=== PATIENT | female | born 1955 | race African-American/Black ===

== ENCOUNTER 2016-11-02 12:53 | Emergency (ER) | payer OTHER ==
[2016-11-02] MEDS ORDERED: ALPRAZolam 0.25 MG TAB PO STA (13:14)
--- NOTE | 2016-11-02 13:18 | ED ---
Recheck HPI - General Chief Complaint: Recheck/Abnormal Lab/Rx Stated Complaint: Blood Pressure Time Seen by Provider: 11/02/16 13:10 Source: patient, RN notes reviewed Mode of arrival: ambulatory Limitations: no limitations - History of Present Illness Initial Comments: This is a 61-year-old female with a history of a four-way coronary artery bypass on September 08 of this past year who also has hypertension states her blood pressure normally is well under control but just prior to admission she was visiting her son was on the psychiatric [place] and had apparently discussion with him she wasn't feeling well and blood pressure taken to a systolic of 210 a diastolic of 106. She was asymptomatic otherwise other than being very anxious. He came in for evaluation. She denies any chest pain or shortness of breath loss of function to her upper or lower extremities. - Related Data Home Medications Medication Instructions Recorded Confirmed metFORMIN HCL [metFORMIN HCL ER] 500 mg PO BID 09/04/16 11/02/16 Previous Rx's Medication Instructions Recorded Aspirin 325 mg PO DAILY #30 tab 09/13/16 Atorvastatin [Lipitor] 40 mg PO DAILY #30 tab 09/13/16 Clopidogrel [Plavix] 75 mg PO DAILY #30 tab 09/13/16 Ferrous Sulfate [Iron (65 MG 325 mg PO W/LUNCH #30 tab 09/13/16 Elemental)] Furosemide [Lasix] 20 mg PO DAILY #30 tab 09/13/16 HYDROcodone/APAP 10-325MG [[place] 1 tab PO Q6H PRN #60 tab 09/13/16 10-325] Insulin Glargine [Lantus] 20 unit SQ HS #1 vial 09/13/16 Metoprolol Tartrate [Lopressor] 75 mg PO BID #180 tab 09/13/16 Pantoprazole [Protonix] 40 mg PO AC-BRKFST #30 tablet.dr 09/13/16 ALPRAZolam [Xanax] 0.25 mg PO BID PRN #10 tab 11/02/16 Magnesium 200 mg PO DAILY #14 tablet 11/02/16 Potassium Chloride [Klor-Con 20] 20 meq PO DAILY #14 tab 11/02/16 Allergies Allergy/AdvReac Type Severity Reaction Status Date / Time acetaminophen [From Tylenol] Allergy Itching Verified 11/02/16 13:01 Review of Systems ROS Statement: Those systems with pertinent positive or pertinent negative responses have been documented in the HPI. ROS Other: All systems not noted in ROS Statement are negative. Past Medical History Past Medical History: Coronary Artery Disease (CAD), Chest Pain / Angina, Diabetes Mellitus, Hyperlipidemia, Hypertension, Osteoarthritis (OA) Additional Past Medical History / Comment(s): Obesity, miltivessel CAD and the patient has triple-vessel disease with a totally occluded mid left anterior descending. The proximal circumflex in the 70-80% stenosis. First obtuse marginal branch has a 70% stenosis. Second obtuse marginal branch has an 80% stenosis. Right coronary artery has a 90% stenosis. History of Any Multi-Drug Resistant Organisms: None Reported Past Surgical History: Section, Cholecystectomy Additional Past Surgical History / Comment(s): A catheterization, results mentioned earlier Past Psychological History: Anxiety Smoking Status: Never smoker Past Alcohol Use History: None Reported Past Drug Use History: None Reported General Exam - General Exam Comments Initial Comments: This is a well-developed well-nourished awake alert oriented 3 female Limitations: no limitations General appearance: alert, anxious Head exam: Present: atraumatic, normocephalic, normal inspection Eye exam: Present: normal appearance, PERRL, EOMI. Absent: scleral icterus, conjunctival injection, periorbital swelling ENT exam: Present: normal exam, mucous membranes moist Neck exam: Present: normal inspection. Absent: tenderness, meningismus, lymphadenopathy Respiratory exam: Present: normal lung sounds bilaterally, other (The midsternal surgical scar is healing well no evidence of any dehiscence or infection.). Absent: respiratory distress, wheezes, rales, rhonchi, stridor Cardiovascular Exam: Present: regular rate, normal rhythm, normal heart sounds. Absent: systolic murmur, diastolic murmur, rubs, gallop, clicks GI/Abdominal exam: Present: soft, normal bowel sounds. Absent: distended, tenderness, guarding, rebound, rigid Extremities exam: Present: normal inspection, full ROM, normal capillary refill. Absent: tenderness, pedal edema, joint swelling, calf tenderness Back exam: Present: normal inspection Neurological exam: Present: alert, oriented X3, CN II-XII intact Psychiatric exam: Present: normal affect, normal mood Skin exam: Present: warm, dry, intact, normal color. Absent: rash Course Vital Signs 11/02/16 11/02/1617 12:58 13:51 14:16 Temperature 98.8 F Pulse Rate 79 63 61 Respiratory 18 18 18 Rate Blood Pressure 220/99 166/78 149/70 O2 Sat by Pulse 99 100 100 Oximetry Medical Decision Making - Medical Decision Making I did discuss the findings with the patient she is feeling much improved she'll be discharged with supplements for magnesium potassium a short course of Xanax. - Lab Data Result diagrams: 11/02/16 13:24 11/02/16 13:24 Lab Results 11/02/16 11/02/16 11/02/16 Range/Units 13:24 13:24 13:24 WBC 3.8 (3.8-10.6) k/uL RBC 3.84 (3.80-5.40) m/uL Hgb 10.9 L D (11.4-16.0) gm/dL Hct 32.3 L (34.0-46.0) % MCV 84.1 (80.0-100.0) fL MCH 28.5 (25.0-35.0) pg MCHC 33.8 (31.0-37.0) g/dL RDW 13.7 (11.5-15.5) % Plt Count 232 (150-450) k/uL Neutrophils % 37 % Lymphocytes % 49 % Monocytes % 6 % Eosinophils % 3 % Basophils % 1 % Neutrophils # 1.4 (1.3-7.7) k/uL Lymphocytes # 1.8 (1.0-4.8) k/uL Monocytes # 0.2 (0-1.0) k/uL Eosinophils # 0.1 (0-0.7) k/uL Basophils # 0.0 (0-0.2) k/uL Sodium 143 (137-145) mmol/L Potassium 3.2 L (3.5-5.1) mmol/L Chloride 104 (98-107) mmol/L Carbon Dioxide 27 (22-30) mmol/L Anion Gap 12 mmol/L BUN 8 (7-17) mg/dL Creatinine 0.80 (0.52-1.04) mg/dL Est GFR (MDRD) Af Amer >60 (>60 ml/min/1.73 sqM) Est GFR (MDRD) Non-Af >60 (>60 ml/min/1.73 sqM) Glucose 110 H (74-99) mg/dL Calcium 9.4 (8.4-10.2) mg/dL Magnesium 1.7 (1.6-2.3) mg/dL Total Bilirubin 0.8 (0.2-1.3) mg/dL AST 26 (14-36) U/L ALT 32 (9-52) U/L Alkaline Phosphatase 59 (38-126) U/L Total Creatine Kinase 192 H (30-135) U/L CK-MB (CK-2) 1.4 (0.0-2.4) ng/mL CK-MB (CK-2) Rel Index 0.7 Troponin I <0.012 (0.000-0.034) ng/mL Total Protein 7.1 (6.3-8.2) g/dL Albumin 4.2 (3.5-5.0) g/dL - EKG Data -: EKG Interpreted by Ar EKG shows normal: sinus rhythm (Sinus rhythm rate is 71 a MA interval 184 QRS duration 86 QT/QTC of 36/419 minimal voltage criteria for LVH nonspecific T- wave configuration.) - Radiology Data Radiology results: report reviewed (Imaging was reviewed no acute findings are seen.), image reviewed Disposition Clinical Impression: Hypokalemia, Hypertension, Anxiety Disposition: HOME SELF-CARE Condition: Good Instructions: Hypertension (ED), Hypokalemia (ED), Anxiety (ED) Prescriptions: ALPRAZolam [Xanax] 0.25 mg PO BID PRN #10 tab PRN Reason: Anxiety Magnesium 200 mg PO DAILY #14 tablet Potassium Chloride [Klor-Con 20] 20 meq PO DAILY #14 tab
--- NOTE | 2016-11-02 13:46 | XR ---
EXAMINATION TYPE: XR chest 2V DATE OF EXAM: 11/02/2016 1:41 PM COMPARISON: 09/13/2016 HISTORY: Hypertension FINDINGS: The lungs are clear and there is no pneumothorax, pleural effusion, or focal pneumonia. Postsurgical changes noted. Arthropathy of the shoulders. Mild cardiomegaly. No overt failure. Hypertrophic chaney e of the spine. IMPRESSION: 1. No acute process.
[2016-11-02 13:56] LABS: Basophils % (A) 1 %; CH 28.3; CHCM 33.8; Eosinophils # (A) 0.1 k/uL (0-0.7); Eosinophils % (A) 3 %; HCT 32.3 % (34.0-46.0); HDW 3.28; Luc # (Auto) 0.13; Luc % (Auto) 4; Lymphocytes # (A) 1.8 k/uL (1.0-4.8); Lymphocytes % (A) 49 %; MCH 28.5 pg (25.0-35.0); MCHC 33.8 g/dL (31.0-37.0); MCV 84.1 fL (80.0-100.0); Mean Platelet Volume 7.9; Monocytes # (A) 0.2 k/uL (0-1.0); Monocytes % (A) 6 %; Neutrophils # (A) 1.4 k/uL (1.3-7.7); Neutrophils % (A) 37 %; RBC 3.84 m/uL (3.80-5.40); RDW 13.7 % (11.5-15.5); WBC 3.8 k/uL (3.8-10.6); WBC (Perox) 3.83
[2016-11-02 14:01] LABS: HGB 10.9 gm/dL (11.4-16.0)
[2016-11-02 14:09] LABS: ALT 32 U/L (9-52); AST 26 U/L (14-36); Alkaline Phosphatase 59 U/L (38-126); Anion Gap 12 mmol/L; Blood Urea Nitrogen 8 mg/dL (7-17); Calcium 9.4 mg/dL (8.4-10.2); Carbon Dioxide 27 mmol/L (22-30); Chloride 104 mmol/L (98-107); Glucose 110 mg/dL (74-99); Magnesium 1.7 mg/dL (1.6-2.3); Non-African American GFR(MDRD) >60 (>60 ml/min/1.73 sqM); Potassium 3.2 mmol/L (3.5-5.1); Sodium 143 mmol/L (137-145); Total Bilirubin 0.8 mg/dL (0.2-1.3); Total Protein 7.1 g/dL (6.3-8.2)
[2016-11-02] MEDS ORDERED: HYDROmorphone 1 MG/ML 1 ML SYRINGE IVP STA (14:11)
[2016-11-02 14:24] LABS: Creatine Kinase 192 U/L (30-135)
[2016-11-02 14:37] LABS: Creatine Kinase MB 1.4 ng/mL (0.0-2.4); Troponin I <0.012 ng/mL (0.000-0.034)
[2016-11-02 15:26] VITALS: BP 138/64; PULSE 57; RESP 16; TEMP 98
== END 2016-11-02 15:30 | disposition home or self-care (01) ==
LOC: EC 12:53
DX: I10 Essential (primary) hypertension (principal); E87.6 Hypokalemia; F41.9 Anxiety disorder, unspecified; E11.9 Type 2 diabetes mellitus without complications; I25.10 Atherosclerotic heart disease of native coronary artery without angina pectoris; Z95.1 Presence of aortocoronary bypass graft; E78.5 Hyperlipidemia, unspecified; M19.90 Unspecified osteoarthritis, unspecified site; E66.9 Obesity, unspecified; Z79.82 Long term (current) use of aspirin; Z79.4 Long term (current) use of insulin; Z79.02 Long term (current) use of antithrombotics/antiplatelets; Z79.84 Long term (current) use of oral hypoglycemic drugs; Z88.6 Allergy status to analgesic agent
CPT/HCPCS: 99284; 96374; 36415; 93005; 80053; 82550; 82553; 83735; 84484; 85025; 71020; J1170

== ENCOUNTER 2016-12-02 20:51 | Emergency (ER) | payer OTHER ==
--- NOTE | 2016-12-02 21:20 | ED ---
Extremity Problem HPI - General Chief complaint: Extremity Problem,Nontraumatic Stated complaint: Groin/Hip Pain Time Seen by Provider: 12/02/16 21:05 Source: patient, RN notes reviewed Mode of arrival: wheelchair Limitations: no limitations - History of Present Illness Initial comments: Patient is a 67-year-old female presents to the emergency room evaluation of right groin pain. Patient states she woke up this morning and got ready for the day while eating breakfast she noticed that she is having increased right groin pain while walking. Patient states never had pain like this before. Patient states she does have a history of arthritis. Patient states this pain feels different. Patient states having sharp pain that radiates into her groin area. Patient has been pain or burning during urination, trouble urinating or blood in urine. Patient denies abdominal pain. Patient denies nausea or vomiting. Patient states she just had a CABG on 09/08/16 and is afraid that she had a blood clot in her leg. Patient does admit that she takes aspirin and Plavix daily. Patient denies any specific injury or changes in physical activity. Patient denies numbness or tingling going down her right leg. Patient states took a [place] before arrival was slightly for symptoms. - Related Data Home Medications Medication Instructions Recorded Confirmed metFORMIN HCL [metFORMIN HCL ER] 500 mg PO BID 09/04/16 12/02/16 Previous Rx's Medication Instructions Recorded Aspirin 325 mg PO DAILY #30 tab 09/13/16 Atorvastatin [Lipitor] 40 mg PO DAILY #30 tab 09/13/16 Clopidogrel [Plavix] 75 mg PO DAILY #30 tab 09/13/16 Ferrous Sulfate [Iron (65 MG 325 mg PO W/LUNCH #30 tab 09/13/16 Elemental)] Furosemide [Lasix] 20 mg PO DAILY #30 tab 09/13/16 HYDROcodone/APAP 10-325MG [[place] 1 tab PO Q6H PRN #60 tab 09/13/16 10-325] Insulin Glargine [Lantus] 20 unit SQ HS #1 vial 09/13/16 Metoprolol Tartrate [Lopressor] 75 mg PO BID #180 tab 09/13/16 Pantoprazole [Protonix] 40 mg PO JOAQUÍN-LACEY #30 tablet. 09/13/16 ALPRAZolam [Xanax] 0.25 mg PO BID PRN #10 tab 11/02/16 Magnesium 200 mg PO DAILY #14 tablet 11/02/16 Potassium Chloride [Klor-Con 20] 20 meq PO DAILY #14 tab 11/02/16 Cyclobenzaprine [Flexeril] 10 mg PO TID PRN #12 tab 12/02/16 Allergies Allergy/AdvReac Type Severity Reaction Status Date / Time acetaminophen [From Tylenol] AdvReac Itching Verified 12/02/16 20:59 Review of Systems ROS Statement: Those systems with pertinent positive or pertinent negative responses have been documented in the HPI. ROS Other: All systems not noted in ROS Statement are negative. Past Medical History Past Medical History: Coronary Artery Disease (CAD), Chest Pain / Angina, Diabetes Mellitus, Hyperlipidemia, Hypertension, Osteoarthritis (OA) Additional Past Medical History / Comment(s): Obesity, miltivessel CAD and the patient has triple-vessel disease with a totally occluded mid left anterior descending. The proximal circumflex in the 70-80% stenosis. First obtuse marginal branch has a 70% stenosis. Second obtuse marginal branch has an 80% stenosis. Right coronary artery has a 90% stenosis. History of Any Multi-Drug Resistant Organisms: None Reported Past Surgical History: Section, Cholecystectomy, Coronary Bypass/CABG Additional Past Surgical History / Comment(s): A catheterization, results mentioned earlier Past Psychological History: Anxiety Smoking Status: Never smoker Past Alcohol Use History: None Reported Past Drug Use History: None Reported General Exam - General Exam Comments Initial Comments: Sitting in exam room in no acute distress. Limitations: no limitations General appearance: alert, in no apparent distress Head exam: Present: atraumatic, normocephalic, normal inspection Eye exam: Present: normal appearance ENT exam: Present: normal exam Neck exam: Present: normal inspection Respiratory exam: Present: normal lung sounds bilaterally. Absent: respiratory distress Cardiovascular Exam: Present: regular rate, normal rhythm, normal heart sounds Extremities exam: Present: normal inspection Right Hip exam: Present: normal inspection, full ROM, tenderness (Pain on palpating over her right groin). Absent: swelling Upper Leg exam: Present: normal inspection, full ROM. Absent: tenderness Knee exam: Present: normal inspection, full ROM. Absent: tenderness Lower Leg exam: Present: normal inspection, full ROM. Absent: tenderness Ankle exam: Present: normal inspection, full ROM. Absent: tenderness Foot/Toe exam: Present: normal inspection, full ROM. Absent: tenderness Neurovascular tendon exam: Present: no vascular compromise. Absent: pulse deficit (2+ dorsal pedal and posterior tibial pulses), abnormal cap refill ( Capillary refill less than 2 seconds) Back exam: Present: normal inspection Neurological exam: Present: alert, oriented X3, CN II-XII intact Psychiatric exam: Present: normal affect, normal mood Skin exam: Present: warm, dry, intact, normal color. Absent: rash Course Vital Signs 12/02/16 12/02/16 20:54 22:00 Temperature 97.5 F L 97.6 F Pulse Rate 99 95 Respiratory 18 20 Rate Blood Pressure 135/72 118/64 O2 Sat by Pulse 99 98 Oximetry Medical Decision Making - Medical Decision Making Patient is a 61-year-old female presents to the emergency room for right groin pain. Right hip x-ray shows no evidence for osteoporosis. No acute findings. Right lower extremity ultrasound shows no sign of blood clots. Will send patient home on muscle relaxers and have her follow-up with her primary care provider. Patient states she understands everything that was discussed with her. Return parameters discussed. Case discussed with Dr. Onofre. - Radiology Data Radiology results: report reviewed, image reviewed Disposition Clinical Impression: Strain of muscle of right groin region Disposition: HOME SELF-CARE Condition: Good Instructions: Groin Strain (ED) Additional Instructions: Ice on and off for 10-15 minutes for the next 24-48 hours. Take prescribed medications as needed for pain. Please follow up with primary care provider for reevaluation in 24-48 hours. If new symptoms develop or symptoms worsen, please return to the ER. Prescriptions: Cyclobenzaprine [Flexeril] 10 mg PO TID PRN #12 tab PRN Reason: Pain Referrals: Wanda Barrett MD [Primary Care Provider] - 1-2 days Time of Disposition: 22:20
--- NOTE | 2016-12-02 21:42 | XR ---
EXAMINATION TYPE: XR Hip Complete RT DATE OF EXAM: 12/02/2016 9:26 PM COMPARISON: NONE HISTORY: Right hip pain TECHNIQUE: 2 views FINDINGS: There is mild acetabular spurring. There is mild hip joint space narrowing. Proximal femur appears intact. I see no fracture. IMPRESSION: Mild hypertrophic osteoarthritis. No fracture.
--- NOTE | 2016-12-02 21:56 | US ---
EXAMINATION TYPE: US venous doppler duplex LE RT DATE OF EXAM: 12/02/2016 9:18 PM COMPARISON: NONE CLINICAL HISTORY: Pain. Groin pain SIDE PERFORMED: Right VESSELS IMAGED: External Iliac Vein (EIV) Common Femoral Vein Deep Femoral Vein Greater Saphenous Vein * Femoral Vein Popliteal Vein Small Saphenous Vein * Proximal Calf Veins (* superficial vessels) TECHNOLOGIST IMPRESSION: Right Leg: Appears negative for DVT IMPRESSION: Normal exam. No evidence of deep venous thrombosis in the right leg.
[2016-12-02 22:18] VITALS: BP 118/64; PULSE 95; RESP 20; TEMP 97.6
[2016-12-02] MEDS ORDERED: CYCLOBENZAPRINE 10 MG TAB PO STA (22:26)
== END 2016-12-02 22:41 | disposition home or self-care (01) ==
LOC: EC 20:51
DX: S39.011A Strain of muscle, fascia and tendon of abdomen, initial encounter (principal); I25.10 Atherosclerotic heart disease of native coronary artery without angina pectoris; E11.9 Type 2 diabetes mellitus without complications; E78.5 Hyperlipidemia, unspecified; I10 Essential (primary) hypertension; M19.90 Unspecified osteoarthritis, unspecified site; Z79.4 Long term (current) use of insulin; Z88.6 Allergy status to analgesic agent; Z95.1 Presence of aortocoronary bypass graft; Z79.84 Long term (current) use of oral hypoglycemic drugs; Z79.82 Long term (current) use of aspirin; Z79.02 Long term (current) use of antithrombotics/antiplatelets; Z79.899 Other long term (current) drug therapy; X58.XXXA Exposure to other specified factors, initial encounter
CPT/HCPCS: 73502; 99284

== ENCOUNTER 2016-12-04 17:46 | Emergency (ER) | payer OTHER ==
[2016-12-04 17:51] VITALS: BP 160/79; PULSE 96; RESP 17; TEMP 98
[2016-12-04] MEDS ORDERED: KETOROLAC 60 MG/2 ML VIAL IM STA (18:25)
[2016-12-04] MEDS ORDERED: methylPREDNISolone SOD SUCCI 125 MG/2 ML VIAL IM ONE (18:25)
--- NOTE | 2016-12-04 18:27 | ED ---
General Adult HPI - General Chief complaint: Recheck/Abnormal Lab/Rx Stated complaint: hip/groin pain Time Seen by Provider: 12/04/16 18:08 Source: patient, RN notes reviewed Mode of arrival: wheelchair Limitations: no limitations - History of Present Illness Initial comments: Patient is a 61-year-old female with chief complaint of right groin pain that is worse with ambulation for 2 days. Patient states that when she was walking a few steps she feels that it is of her nerve was pinched and it radiated from her hip towards her in her groin. Patient states that she's had no trouble urinating and denies any dysuria, hematuria or changes in bowel or bladder habits. She denies any abdominal pain. She also denies any fever or chills. Patient was seen yesterday in the emergency room for similar pain in the a Doppler ultrasound of the right leg and hip x-rays were obtained. X-rays did show moderate arthritis. Ultrasound was negative for DVT. Patient states that she is currently in no pain except for when she is walking. She did receive a prescription for pain medication and muscle relaxers however she did not take those today. She does have a history of a CABG on 09/08/2016. Currently she denies any chest pain, shortness of breath, nausea vomiting fever or chills or shaking. Patient is a type II diabetic. She does manage us with metformin. - Related Data Home Medications Medication Instructions Recorded Confirmed metFORMIN HCL [metFORMIN HCL ER] 500 mg PO BID 09/04/16 12/02/16 Previous Rx's Medication Instructions Recorded Aspirin 325 mg PO DAILY #30 tab 09/13/16 Atorvastatin [Lipitor] 40 mg PO DAILY #30 tab 09/13/16 Clopidogrel [Plavix] 75 mg PO DAILY #30 tab 09/13/16 Ferrous Sulfate [Iron (65 MG 325 mg PO W/LUNCH #30 tab 09/13/16 Elemental)] Furosemide [Lasix] 20 mg PO DAILY #30 tab 09/13/16 HYDROcodone/APAP 10-325MG [[place] 1 tab PO Q6H PRN #60 tab 09/13/16 10-325] Insulin Glargine [Lantus] 20 unit SQ HS #1 vial 09/13/16 Metoprolol Tartrate [Lopressor] 75 mg PO BID #180 tab 12/06/16 Pantoprazole [Protonix] 40 mg PO MITRABRKFST #30 tablet. 09/13/16 ALPRAZolam [Xanax] 0.25 mg PO BID PRN #10 tab 11/02/16 Magnesium 200 mg PO DAILY #14 tablet 11/02/16 Potassium Chloride [Klor-Con 20] 20 meq PO DAILY #14 tab 11/02/16 Cyclobenzaprine [Flexeril] 10 mg PO TID PRN #12 tab 12/02/16 Dexamethasone 0.75 mg PO DAILY #12 tab 12/04/16 Allergies Allergy/AdvReac Type Severity Reaction Status Date / Time acetaminophen [From Tylenol] AdvReac Itching Verified 12/02/16 20:59 Review of Systems ROS Statement: Those systems with pertinent positive or pertinent negative responses have been documented in the HPI. ROS Other: All systems not noted in ROS Statement are negative. Past Medical History Past Medical History: Coronary Artery Disease (CAD), Chest Pain / Angina, Diabetes Mellitus, Hyperlipidemia, Hypertension, Osteoarthritis (OA) Additional Past Medical History / Comment(s): Obesity, miltivessel CAD and the patient has triple-vessel disease with a totally occluded mid left anterior descending. The proximal circumflex in the 70-80% stenosis. First obtuse marginal branch has a 70% stenosis. Second obtuse marginal branch has an 80% stenosis. Right coronary artery has a 90% stenosis. History of Any Multi-Drug Resistant Organisms: None Reported Past Surgical History: Section, Cholecystectomy, Coronary Bypass/CABG Additional Past Surgical History / Comment(s): A catheterization, results mentioned earlier Past Psychological History: Anxiety Smoking Status: Never smoker Past Alcohol Use History: None Reported Past Drug Use History: None Reported General Exam - General Exam Comments Initial Comments: Patient is a pleasant 61-year-old female. She doesn't appear to be in any acute distress. Limitations: no limitations General appearance: alert, in no apparent distress Head exam: Present: atraumatic, normocephalic, normal inspection Eye exam: Present: normal appearance, PERRL, EOMI. Absent: scleral icterus, conjunctival injection, periorbital swelling ENT exam: Present: normal exam, normal oropharynx, mucous membranes moist, TM's normal bilaterally Neck exam: Present: normal inspection. Absent: tenderness, meningismus, lymphadenopathy Respiratory exam: Present: normal lung sounds bilaterally. Absent: respiratory distress, wheezes, rales, rhonchi, stridor Cardiovascular Exam: Present: regular rate, normal rhythm, normal heart sounds. Absent: systolic murmur, diastolic murmur, rubs, gallop, clicks GI/Abdominal exam: Present: soft, normal bowel sounds. Absent: distended, tenderness, guarding, rebound, rigid Extremities exam: Present: normal inspection, full ROM, normal capillary refill. Absent: tenderness, pedal edema, joint swelling, calf tenderness Right Hip exam: Present: normal inspection, full ROM, tenderness (Patient has reproducible tenderness over the groin and is worse with hip external rotation.) Upper Leg exam: Present: normal inspection, full ROM Knee exam: Present: normal inspection, full ROM Lower Leg exam: Present: normal inspection, full ROM Ankle exam: Present: normal inspection, full ROM Foot/Toe exam: Present: normal inspection, full ROM Neurovascular tendon exam: Present: no vascular compromise Back exam: Present: normal inspection, full ROM. Absent: tenderness, CVA tenderness (R), CVA tenderness (L), muscle spasm Neurological exam: Present: alert, oriented X3, CN II-XII intact Psychiatric exam: Present: normal affect, normal mood Skin exam: Present: warm, dry, intact, normal color. Absent: rash Course Vital Signs 12/04/16 17:48 Temperature 98.0 F Pulse Rate 96 Respiratory 17 Rate Blood Pressure 160/79 O2 Sat by Pulse 98 Oximetry Medical Decision Making - Medical Decision Making Patient is a 61-year-old female with shooting right groin pain for approximately 2 days. She states that initially to cause the pain she may have lifted her leg in normal position. She received a Doppler ultrasound and x- rays yesterday which is some mild arthritis. No evidence of DVT. Patient declines in repeating any imaging studies today. Patient will be given a shot of Solu-Medrol and Toradol. I will also prescribe the patient a short course of dexamethasone and referred to orthopedics for further evaluation. Patient denies any back pain, dysuria, abdominal pain, hematuria. Return parameters were discussed. Disposition Clinical Impression: Strain of right hip Disposition: HOME SELF-CARE Condition: Good Instructions: Hip Pain (ED) Additional Instructions: Patient advised to follow up with primary care provider. Patient advised to complete the [place] prescription as directed as well as taking muscle rocks her medications as previously prescribed. Patient advised to follow-up with orthopedic physician of symptoms continue to persist. Return to the emergency department or concerns or any worsening signs or symptoms occur. Prescriptions: Dexamethasone 0.75 mg PO DAILY #12 tab Referrals: Wanda Barrett MD [Primary Care Provider] - 1-2 days Time of Disposition: 18:24
== END 2016-12-04 18:49 | disposition home or self-care (01) ==
LOC: EC 17:46
DX: S76.011A Strain of muscle, fascia and tendon of right hip, initial encounter (principal); X58.XXXA Exposure to other specified factors, initial encounter; E11.9 Type 2 diabetes mellitus without complications; Z88.6 Allergy status to analgesic agent; M19.90 Unspecified osteoarthritis, unspecified site; I10 Essential (primary) hypertension; E78.5 Hyperlipidemia, unspecified; Z95.1 Presence of aortocoronary bypass graft; I25.10 Atherosclerotic heart disease of native coronary artery without angina pectoris; F41.9 Anxiety disorder, unspecified; Z79.84 Long term (current) use of oral hypoglycemic drugs; Z79.82 Long term (current) use of aspirin; Z79.899 Other long term (current) drug therapy; Z79.02 Long term (current) use of antithrombotics/antiplatelets; Z79.4 Long term (current) use of insulin
CPT/HCPCS: 99283; 96372; J2930; J1885

== ENCOUNTER → 2017-05-15 | Outpatient (CLI) | payer OTHER ==
[2017-05-15 16:17] LABS: Potassium 3.4 mmol/L (3.5-5.1)
== END | disposition home or self-care (01) ==
LOC: LABWHC1 15:50
PROVIDERS: ATTEND Internal Medicine
DX: E78.2 Mixed hyperlipidemia (principal); E11.65 Type 2 diabetes mellitus with hyperglycemia; I10 Essential (primary) hypertension
CPT/HCPCS: 36415; 80051

== ENCOUNTER → 2017-11-16 | Outpatient (CLI) | payer OTHER ==
[2017-11-16 08:49] LABS: Basophils # (A) 0.1 k/uL (0-0.2); Basophils % (A) 1 %; Eosinophils # (A) 0.1 k/uL (0-0.7); Eosinophils % (A) 3 %; HCT 40.7 % (34.0-46.0); HGB 13.7 gm/dL (11.4-16.0); Lymphocytes # (A) 2.3 k/uL (1.0-4.8); Lymphocytes % (A) 47 %; MCH 28.7 pg (25.0-35.0); MCHC 33.6 g/dL (31.0-37.0); MCV 85.4 fL (80.0-100.0); Mean Platelet Volume 7.4; Monocytes # (A) 0.3 k/uL (0-1.0); Monocytes % (A) 7 %; Neutrophils # (A) 1.9 k/uL (1.3-7.7); Neutrophils % (A) 39 %; Platelet Count 230 k/uL (150-450); RBC 4.77 m/uL (3.80-5.40); RDW 12.6 % (11.5-15.5); WBC 4.9 k/uL (3.8-10.6)
[2017-11-16 09:09] LABS: ALT 34 U/L (9-52); AST 32 U/L (14-36); Albumin 4.5 g/dL (3.5-5.0); Alkaline Phosphatase 67 U/L (38-126); Anion Gap 12 mmol/L; Blood Urea Nitrogen 21 mg/dL (7-17); Calcium 9.9 mg/dL (8.4-10.2); Carbon Dioxide 32 mmol/L (22-30); Chloride 95 mmol/L (98-107); Cholesterol 253 mg/dL (<200); Glucose 237 mg/dL (74-99); HDL Cholesterol 58 mg/dL (40-60); LDL Cholesterol,Calculated 170 mg/dL (0-99); Potassium 3.4 mmol/L (3.5-5.1); Sodium 139 mmol/L (137-145); Total Bilirubin 0.9 mg/dL (0.2-1.3); Total Protein 7.9 g/dL (6.3-8.2); Triglycerides 126 mg/dL (<150)
[2017-11-16 17:38] LABS: Hemoglobin A1C 11.2 % (4.0-6.0)
== END | disposition home or self-care (01) ==
LOC: LABWHC1 08:17
PROVIDERS: ATTEND Nurse Practitioner Family
DX: I10 Essential (primary) hypertension (principal); E11.9 Type 2 diabetes mellitus without complications
CPT/HCPCS: 36415; 80053; 80061; 82043; 82306; 82570; 83036; 84443; 85025

== ENCOUNTER 2018-01-08 15:03 | Emergency (ER) | payer OTHER ==
[2018-01-08 15:20] VITALS: BP 148/80; PULSE 86; RESP 18; TEMP 98.3
[2018-01-08] MEDS ORDERED: methylPREDNISolone SOD SUCCI 125 MG/2 ML VIAL IM STA (15:27)
[2018-01-08] MEDS ORDERED: KETOROLAC 60 MG/2 ML VIAL IM STA (15:27)
--- NOTE | 2018-01-08 15:32 | ED ---
General Adult HPI - General Chief complaint: Extremity Problem,Nontraumatic Stated complaint: rt hip pain Time Seen by Provider: 01/08/18 15:23 Source: patient, RN notes reviewed Mode of arrival: ambulatory Limitations: no limitations - History of Present Illness Initial comments: 62-year-old female presents to the emergency department with a chief complaint of right hip pain. Patient states his flared up about a year ago she was put on some steroids and that seemed to improve her pain. Patient denies any falls traumas or injuries to the hip. She denies any other complaints. She denies any back pain. Any loss of bowel or bladder function. She states exactly like her hip flared up in the past. She states that she just wants a steroid injection with steroids for home she believes that will help her feel better. Patient denies any recent fever, chills, shortness of breath, chest pain, back pain, abdominal pain, nausea vomiting, numbness or tingling, dysuria or hematuria, constipation or diarrhea, headaches or visual changes, or any other current symptoms. - Related Data Home Medications Medication Instructions Recorded Confirmed metFORMIN HCL [metFORMIN HCL ER] 500 mg PO BID 09/04/16 12/02/16 Previous Rx's Medication Instructions Recorded Aspirin 325 mg PO DAILY #30 tab 09/13/16 Atorvastatin [Lipitor] 40 mg PO DAILY #30 tab 09/13/16 Clopidogrel [Plavix] 75 mg PO DAILY #30 tab 09/13/16 Ferrous Sulfate [Iron (65 MG 325 mg PO W/LUNCH #30 tab 09/13/16 Elemental)] Furosemide [Lasix] 20 mg PO DAILY #30 tab 09/13/16 HYDROcodone/APAP 10-325MG [[place] 1 tab PO Q6H PRN #60 tab 09/13/16 10-325] Insulin Glargine [Lantus] 20 unit SQ HS #1 vial 09/13/16 Metoprolol Tartrate [Lopressor] 75 mg PO BID #180 tab 09/13/16 Pantoprazole [Protonix] 40 mg PO AC-BRKFST #30 tablet. 09/13/16 ALPRAZolam [Xanax] 0.25 mg PO BID PRN #10 tab 11/02/16 Magnesium 200 mg PO DAILY #14 tablet 11/02/16 Potassium Chloride [Klor-Con 20] 20 meq PO DAILY #14 tab 11/02/16 Cyclobenzaprine [Flexeril] 10 mg PO TID PRN #12 tab 12/02/16 Dexamethasone 0.75 mg PO DAILY #12 tab 01/08/18 Allergies Allergy/AdvReac Type Severity Reaction Status Date / Time acetaminophen [From Tylenol] AdvReac Itching Verified 12/02/16 20:59 Review of Systems ROS Statement: Those systems with pertinent positive or pertinent negative responses have been documented in the HPI. ROS Other: All systems not noted in ROS Statement are negative. Past Medical History Past Medical History: Coronary Artery Disease (CAD), Chest Pain / Angina, Diabetes Mellitus, Hyperlipidemia, Hypertension, Osteoarthritis (OA) Additional Past Medical History / Comment(s): Obesity, miltivessel CAD and the patient has triple-vessel disease with a totally occluded mid left anterior descending. The proximal circumflex in the 70-80% stenosis. First obtuse marginal branch has a 70% stenosis. Second obtuse marginal branch has an 80% stenosis. Right coronary artery has a 90% stenosis. History of Any Multi-Drug Resistant Organisms: None Reported Past Surgical History: Section, Cholecystectomy, Coronary Bypass/CABG Additional Past Surgical History / Comment(s): A catheterization, results mentioned earlier Past Psychological History: Anxiety Smoking Status: Never smoker Past Alcohol Use History: None Reported Past Drug Use History: None Reported General Exam Limitations: no limitations General appearance: alert ENT exam: Present: normal exam, mucous membranes moist Neck exam: Present: normal inspection. Absent: tenderness, meningismus, lymphadenopathy Respiratory exam: Present: normal lung sounds bilaterally. Absent: respiratory distress, wheezes, rales, rhonchi, stridor Cardiovascular Exam: Present: regular rate, normal rhythm, normal heart sounds. Absent: systolic murmur, diastolic murmur, rubs, gallop, clicks Extremities exam: Present: normal inspection, full ROM, normal capillary refill. Absent: tenderness, pedal edema, joint swelling, calf tenderness Back exam: Present: normal inspection, full ROM, other (Patient does have a positive straight leg raise on the right). Absent: tenderness, rash noted Neurological exam: Present: alert, oriented X3 Psychiatric exam: Present: normal affect, normal mood Course Vital Signs 01/08/18 15:17 Temperature 98.3 F Pulse Rate 86 Respiratory 18 Rate Blood Pressure 148/80 O2 Sat by Pulse 98 Oximetry Medical Decision Making - Medical Decision Making 62-year-old female presents with what appears to be possible sciatica versus right hip strain. At this time we we'll start patient states for home she received Toradol and Solu-Medrol here. We discussed follow-up and gave her on- call return parameters all questions. The patient stated that she understood and she is in. All questions have been answered. She will be discharged. Disposition Clinical Impression: Strain of right hip Disposition: HOME SELF-CARE Condition: Stable Instructions: Hip Pain (ED) Additional Instructions: Please use medication as discussed. Please follow up with family doctor if symptoms have not improved over the next two days. Please return to the emergency room if your symptoms increase or worsen or for any other concerns. Prescriptions: Dexamethasone 0.75 mg PO DAILY #12 tab Referrals: Wanda Barrett MD [Primary Care Provider] - 1-2 days Che Howell DO [Doctor of Osteopathic Medicine] - 1-2 days Time of Disposition: 15:34
== END 2018-01-08 16:03 | disposition home or self-care (01) ==
LOC: EC 15:03
DX: S76.011A Strain of muscle, fascia and tendon of right hip, initial encounter (principal); E11.9 Type 2 diabetes mellitus without complications; E66.9 Obesity, unspecified; Z79.84 Long term (current) use of oral hypoglycemic drugs; Z88.8 Allergy status to other drugs, medicaments and biological substances; Z68.37 Body mass index [BMI] 37.0-37.9, adult; X58.XXXA Exposure to other specified factors, initial encounter
CPT/HCPCS: 99283; 96372 ×2; J2930; J1885

== ENCOUNTER 2018-02-04 08:44 | Emergency (ER) | payer OTHER ==
[2018-02-04 08:49] VITALS: TEMP 97.1
[2018-02-04] MEDS ORDERED: methylPREDNISolone SOD SUCCI 125 MG/2 ML VIAL IM ONE (09:04)
[2018-02-04] MEDS ORDERED: KETOROLAC 30 MG/ML 1 ML VIAL IM STA (09:04)
--- NOTE | 2018-02-04 09:07 | ED ---
General Adult HPI - General Chief complaint: Extremity Injury, Lower Stated complaint: rt sided hip pain Time Seen by Provider: 02/04/18 08:52 Source: patient Mode of arrival: wheelchair Limitations: no limitations - History of Present Illness Initial comments: 62-year-old female patient presents to the emergency department today for evaluation of right hip pain. Patient states that this has been bothering her for the last month. Patient states that she does have a history of arthritis and has had similar symptoms with this hip in the past. Patient states that she was seen here approximate one month ago was given an injection of steroids and anti-inflammatory. Patient states she was discharged home with a steroid Dosepak however someone stole it from her car. Patient denies any radiation of the pain down her leg. She denies any numbness or tingling. She denies any loss of bowel or bladder control. She denies any saddle anesthesia. Patient states that her symptoms are the same as her previous exacerbations. Patient is requesting a steroid injection and Dosepak. Patient denies any recent rash, fever, chills, shortness breath, chest pain, abdominal pain, nausea, vomiting, diarrhea, constipation, back pain, numbness, tingling, dizziness, weakness, hematuria, dysuria, urinary urgency, urinary frequency, headache, visual changes , or any other complaints. - Related Data Home Medications Medication Instructions Recorded Confirmed metFORMIN HCL [metFORMIN HCL ER] 500 mg PO BID 09/04/16 01/08/18 Aspirin EC [Ecotrin Low Dose] 81 mg PO DAILY 01/08/18 01/08/18 Previous Rx's Medication Instructions Recorded Atorvastatin [Lipitor] 40 mg PO DAILY #30 tab 09/13/16 Clopidogrel [Plavix] 75 mg PO DAILY #30 tab 09/13/16 Ferrous Sulfate [Iron (65 MG 325 mg PO W/LUNCH #30 tab 09/13/16 Elemental)] Furosemide [Lasix] 20 mg PO DAILY #30 tab 09/13/16 HYDROcodone/APAP 10-325MG [[place] 1 tab PO Q6H PRN #60 tab 09/13/16 10-325] Metoprolol Tartrate [Lopressor] 75 mg PO BID #180 tab 09/13/16 Pantoprazole [Protonix] 40 mg PO ELGIN #30 09/13/16 ALPRAZolam [Xanax] 0.25 mg PO BID PRN #10 tab 11/02/16 Magnesium 200 mg PO DAILY #14 tablet 11/02/16 Potassium Chloride [Klor-Con 20] 20 meq PO DAILY #14 tab 11/02/16 Cyclobenzaprine [Flexeril] 10 mg PO TID PRN #12 tab 12/02/16 Dexamethasone 0.75 mg PO DAILY #12 tab 01/08/18 Dexamethasone [Zodex] 1.5 mg PO DIRECTED #21 tab.ds.pk 02/04/18 Allergies Allergy/AdvReac Type Severity Reaction Status Date / Time acetaminophen [From Tylenol] AdvReac Itching Verified 02/04/18 08:46 Review of Systems ROS Statement: Those systems with pertinent positive or pertinent negative responses have been documented in the HPI. ROS Other: All systems not noted in ROS Statement are negative. Past Medical History Past Medical History: Coronary Artery Disease (CAD), Chest Pain / Angina, Diabetes Mellitus, Hyperlipidemia, Hypertension, Myocardial Infarction ([place]), Osteoarthritis (OA) Additional Past Medical History / Comment(s): Obesity, miltivessel CAD and the patient has triple-vessel disease with a totally occluded mid left anterior descending. The proximal circumflex in the 70-80% stenosis. First obtuse marginal branch has a 70% stenosis. Second obtuse marginal branch has an 80% stenosis. Right coronary artery has a 90% stenosis. History of Any Multi-Drug Resistant Organisms: None Reported Past Surgical History: Section, Cholecystectomy, Coronary Bypass/CABG, Heart Catheterization Additional Past Surgical History / Comment(s): A catheterization, results mentioned earlier Past Psychological History: Anxiety Smoking Status: Never smoker Past Alcohol Use History: None Reported Past Drug Use History: None Reported General Exam Limitations: no limitations General appearance: alert, in no apparent distress, other (This is a well- developed, well-nourished adult female patient in no acute distress. Vital signs upon presentation are temperature 97.1F, pulse 85, respirations 17, blood pressure 132/80, pulse ox 98% on room air.) Eye exam: Present: normal appearance, PERRL, EOMI. Absent: scleral icterus, conjunctival injection, periorbital swelling ENT exam: Present: normal exam, normal oropharynx, mucous membranes moist Respiratory exam: Present: normal lung sounds bilaterally. Absent: respiratory distress, wheezes, rales, rhonchi, stridor Cardiovascular Exam: Present: regular rate, normal rhythm, normal heart sounds. Absent: systolic murmur, diastolic murmur, rubs, gallop, clicks GI/Abdominal exam: Present: soft, normal bowel sounds. Absent: distended, tenderness, guarding, rebound, rigid Extremities exam: Present: normal inspection, full ROM, normal capillary refill , other (Skin to the lower extremities is normal for ethnicity, warm and dry. Cap refills less than 3 seconds. Pedal and posttibial pulses are 2+ and equal bilaterally.). Absent: tenderness, pedal edema, joint swelling, calf tenderness Back exam: Present: normal inspection Neurological exam: Present: alert, oriented X3, CN II-XII intact Psychiatric exam: Present: normal affect, normal mood Skin exam: Present: warm, dry, intact, normal color. Absent: rash Course Vital Signs 02/04/18 02/04/18 08:46 09:20 Temperature 97.1 F L Pulse Rate 85 87 Respiratory 17 20 Rate Blood Pressure 132/80 160/88 O2 Sat by Pulse 98 98 Oximetry Medical Decision Making - Medical Decision Making 62-year-old female patient presented to the emergency department today for evaluation of right hip pain. Physical examination is unremarkable. Neurovascular status is intact. Patient reports history of arthritis and states that her pain is similar to her exacerbations in the past. She is requesting a steroid injection and a steroid Dosepak to go home with. I did offer imaging of the hip, she refuses at this time. We will administer Solu- Medrol and Toradol here in the department. She'll be given a dexamethasone Dosepak to go home with. She is instructed to follow-up with her primary care physician for possible referral to orthopedics for further evaluation. Return parameters discussed in detail. She verbalizes understanding and agrees with this plan. Disposition Clinical Impression: Right hip pain, Osteoarthritis Disposition: HOME SELF-CARE Condition: Good Instructions: Hip Pain (ED) Additional Instructions: Take medications as directed. Follow-up with primary care physician as well as orthopedic physician for further evaluation. Return here immediately for any new, worsening, or concerning symptoms. Prescriptions: Dexamethasone [Zodex] 1.5 mg PO DIRECTED #21 tab.ds.pk Is patient prescribed a controlled substance at d/c from ED?: No Referrals: Wanda Barrett MD [Primary Care Provider] - 1-2 days Time of Disposition: 09:07
[2018-02-04 09:22] VITALS: BP 160/88; PULSE 87; RESP 20
== END 2018-02-04 09:24 | disposition home or self-care (01) ==
LOC: EC 08:44
DX: M16.11 Unilateral primary osteoarthritis, right hip (principal); I25.119 Atherosclerotic heart disease of native coronary artery with unspecified angina pectoris; E11.9 Type 2 diabetes mellitus without complications; I25.2 Old myocardial infarction; E66.9 Obesity, unspecified; Z68.37 Body mass index [BMI] 37.0-37.9, adult; Z79.82 Long term (current) use of aspirin; Z79.84 Long term (current) use of oral hypoglycemic drugs; Z88.6 Allergy status to analgesic agent; Z95.1 Presence of aortocoronary bypass graft; Z95.818 Presence of other cardiac implants and grafts
CPT/HCPCS: 99283; 96372 ×2; J2930; J1885

== ENCOUNTER 2018-02-24 12:29 | Emergency (ER) | payer OTHER ==
[2018-02-24 12:40] VITALS: BP 125/78; PULSE 95; RESP 18; TEMP 98.5
--- NOTE | 2018-02-24 13:23 | ED ---
Anxiety HPI - General Chief Complaint: Anxiety Stated Complaint: Anxiety Time Seen by Provider: 02/24/18 12:51 Source: patient, RN notes reviewed, old records reviewed Mode of arrival: ambulatory - History of Present Illness Initial Comments: 62 year old female, CC of severe anxiety and out of her medication. Her psychiatrist left his practice and she has been out for one week. She states she is concerned with this, and is trying to follow up with a new provider but cannot be seen soone enough. She reports she went to weekly therapy with psychiatrist. No suicidal or homicidal ideation. No physical complaints. - Related Data Home Medications: Home Medications Medication Instructions Recorded Confirmed metFORMIN HCL [metFORMIN HCL ER] 500 mg PO BID 09/04/16 02/24/18 Aspirin EC [Ecotrin Low Dose] 81 mg PO DAILY 01/08/18 02/24/18 Previous Rx's Medication Instructions Recorded Atorvastatin [Lipitor] 40 mg PO DAILY #30 tab 09/13/16 Clopidogrel [Plavix] 75 mg PO DAILY #30 tab 09/13/16 Furosemide [Lasix] 20 mg PO DAILY #30 tab 09/13/16 HYDROcodone/APAP 10-325MG [[place] 1 tab PO Q6H PRN #60 tab 09/13/16 10-325] Metoprolol Tartrate [Lopressor] 75 mg PO BID #180 tab 09/13/16 Pantoprazole [Protonix] 40 mg PO AC-BRKFST #30 tablet.dr 09/13/16 ALPRAZolam [Xanax] 0.25 mg PO BID PRN #10 tab 11/02/16 Magnesium 200 mg PO DAILY #14 tablet 11/02/16 Potassium Chloride [Klor-Con 20] 20 meq PO DAILY #14 tab 11/02/16 ALPRAZolam [Xanax] 1 mg PO Q8HR PRN 3 Days #9 tab 02/24/18 Allergies/Adverse Reactions: Allergies Allergy/AdvReac Type Severity Reaction Status Date / Time acetaminophen [From Tylenol] AdvReac Itching Verified 02/24/18 12:36 Review of Systems ROS Statement: Those systems with pertinent positive or pertinent negative responses have been documented in the HPI. ROS Other: All systems not noted in ROS Statement are negative. Past Medical History Past Medical History: Coronary Artery Disease (CAD), Chest Pain / Angina, Diabetes Mellitus, Hyperlipidemia, Hypertension, Myocardial Infarction ([place]), Osteoarthritis (OA) Additional Past Medical History / Comment(s): Obesity, miltivessel CAD and the patient has triple-vessel disease with a totally occluded mid left anterior descending. The proximal circumflex in the 70-80% stenosis. First obtuse marginal branch has a 70% stenosis. Second obtuse marginal branch has an 80% stenosis. Right coronary artery has a 90% stenosis. History of Any Multi-Drug Resistant Organisms: None Reported Past Surgical History: Section, Cholecystectomy, Coronary Bypass/CABG, Heart Catheterization Additional Past Surgical History / Comment(s): A catheterization, results mentioned earlier Past Psychological History: Anxiety, PTSD Smoking Status: Never smoker Past Alcohol Use History: None Reported Past Drug Use History: None Reported General Exam - General Exam Comments Initial Comments: Well appearing 62 year old female, no distress. Limitations: no limitations General appearance: alert, in no apparent distress Head exam: Present: atraumatic, normocephalic, normal inspection Eye exam: Present: normal appearance, PERRL, EOMI. Absent: scleral icterus, conjunctival injection, periorbital swelling ENT exam: Present: normal exam, mucous membranes moist Neck exam: Present: normal inspection. Absent: tenderness, meningismus, lymphadenopathy Respiratory exam: Present: normal lung sounds bilaterally. Absent: respiratory distress, wheezes, rales, rhonchi, stridor Cardiovascular Exam: Present: regular rate, normal rhythm, normal heart sounds. Absent: systolic murmur, diastolic murmur, rubs, gallop, clicks Extremities exam: Present: normal inspection, full ROM, normal capillary refill. Absent: tenderness, pedal edema, joint swelling, calf tenderness Back exam: Present: normal inspection Neurological exam: Present: alert, oriented X3, CN II-XII intact Psychiatric exam: Present: normal mood, anxious. Absent: normal affect Course Vital Signs 02/24/18 12:37 Temperature 98.5 F Pulse Rate 95 Respiratory 18 Rate Blood Pressure 125/78 O2 Sat by Pulse 99 Oximetry Medical Decision Making - Medical Decision Making Patient is a 62 year old female with CC of med refill for anxiety medication. MAPS report completed and patient has only recieved these medications from psychiatrist. She is telling the truth. She is informed only can write for short Rx of anxiety medication from ER. Given referral for psychiatry. Discussed return parameters. Patient agrees to treatment plan and will comply. REturn parameters discussed. Disposition Clinical Impression: Anxiety Disposition: HOME SELF-CARE Condition: Good Instructions: Generalized Anxiety Disorder (ED) Additional Instructions: Patient advised to follow up with outpatient counseling services and psychiatrist. Return to the emergency department if any alarming signs or symptoms occur. Prescriptions: ALPRAZolam [Xanax] 1 mg PO Q8HR PRN 3 Days #9 tab PRN Reason: Anxiety Is patient prescribed a controlled substance at d/c from ED?: No If prescribed controlled substance>3 days was MAPS reviewed?: No When asked, does pt state using other controlled substances?: No Referrals: Wanda Barrett MD [Primary Care Provider] - 1-2 days Huey Mcdaniel DO [Medical Doctor] - 1-2 days Time of Disposition: 13:22
== END 2018-02-24 13:29 | disposition home or self-care (01) ==
LOC: EC 12:29
DX: F41.9 Anxiety disorder, unspecified (principal); E11.9 Type 2 diabetes mellitus without complications; M19.90 Unspecified osteoarthritis, unspecified site; I25.119 Atherosclerotic heart disease of native coronary artery with unspecified angina pectoris; F43.10 Post-traumatic stress disorder, unspecified; Z79.82 Long term (current) use of aspirin; Z79.84 Long term (current) use of oral hypoglycemic drugs; Z88.6 Allergy status to analgesic agent; Z98.61 Coronary angioplasty status
CPT/HCPCS: 99283

== ENCOUNTER → 2018-09-25 | Outpatient (CLI) | payer OTHER ==
--- NOTE | 2018-09-25 09:31 | MR ---
EXAMINATION TYPE: MR knee LT wo con DATE OF EXAM: 09/25/2018 COMPARISON: None HISTORY: Left knee pain TECHNIQUE: Multiplanar, multisequence images of the knee is performed without IV contrast. FINDINGS: MEDIAL MENISCUS: Anterior and posterior horns are intact without tear.There is evidence of myxoid deg eneration. LATERAL MENISCUS: Anterior and posterior horns are intact without tear.There is evidence of myxoid de generation. CRUCIATE LIGAMENTS: The anterior and posterior cruciate ligaments are intact and unremarkable. COLLATERAL LIGAMENTS: The medial collateral ligament and lateral collateral ligament complex are inta ct. EXTENSOR MECHANISM: Visualized quadriceps and patellar tendons are intact. EFFUSION: Small suprapatellar joint effusion identified. POPLITEAL CYST: 2 popliteal cysts are noted one measures 2.3 cm in length by 5 mm in width while the second demonstrates a maximal measurement of 4.8 mm TRICOMPARTMENT SPACES: Mild narrowing medial tibiofemoral joint space. Mild narrowing and early chaney es of chondromalacia patella patellofemoral joint space. Mild superior patellar spurring. CARTILAGE: Intact BONE MARROW SIGNAL: No focal abnormal marrow signal is appreciated. OTHER: No additional significant abnormality is appreciated. IMPRESSION: 1 changes of osteoarthritis. 2. 2 small popliteal cysts are noted. 3. Small joint effusion. 4. Myxoid degeneration menisci.
== END | disposition home or self-care (01) ==
LOC: RADMRIMAIN 07:35
PROVIDERS: ATTEND Family Medicine
DX: M17.12 Unilateral primary osteoarthritis, left knee (principal); M23.307 Other meniscus derangements, unspecified meniscus, left knee

== ENCOUNTER 2019-02-13 08:38 | Emergency (ER) | payer MEDICARE, OTHER ==
[2019-02-13 08:43] VITALS: TEMP 97.9
--- NOTE | 2019-02-13 09:14 | ED ---
Extremity Problem HPI - General Chief complaint: Extremity Problem,Nontraumatic Stated complaint: Hip Pain Time Seen by Provider: 02/13/19 08:51 Source: patient Mode of arrival: wheelchair Limitations: no limitations - History of Present Illness Initial comments: Patient is 63-year-old female presents to emergency department with right hip pain. 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 Patient states her current flareup is localized to her right hip where she has limited range of motion, muscle weakness and tenderness. Patient states that she gets occasional numbness in bilateral feet but attributes that to her diabetes. Patient states that she takes [place] for her arthritis. Patient reports commented on in his apartment only to get her steroid shots. Patient states that she tries to keep her diabetes in control using "natural remedies" without medication. Patient is also complaining of vertigo and states that the room spinning. - Related Data Home Medications Medication Instructions Recorded Confirmed Aspirin EC [Ecotrin Low Dose] 81 mg PO DAILY 01/08/18 02/13/19 Hydrochlorothiazide 50 mg PO DAILY 02/13/19 02/13/19 Previous Rx's Medication Instructions Recorded HYDROcodone/APAP 10-325MG [[place] 1 tab PO Q6H PRN #60 tab 09/13/16 10-325] ALPRAZolam [Xanax] 1 mg PO Q8HR PRN 3 Days #9 tab 02/24/18 Allergies Allergy/AdvReac Type Severity Reaction Status Date / Time acetaminophen [From Tylenol] AdvReac Itching Verified 02/13/19 09:16 Review of Systems ROS Statement: Those systems with pertinent positive or pertinent negative responses have been documented in the HPI. ROS Other: All systems not noted in ROS Statement are negative. Past Medical History Past Medical History: Coronary Artery Disease (CAD), Chest Pain / Angina, Diabetes Mellitus, Hyperlipidemia, Hypertension, Myocardial Infarction ([place]), Os teoarthritis (OA) Additional Past Medical History / Comment(s): Obesity, miltivessel CAD and the patient has triple-vessel disease with a totally occluded mid left anterior de scending. The proximal circumflex in the 70-80% stenosis. First obtuse marginal branch has a 70% stenosis. Second obtuse marginal branch has an 80% stenosis. Right coronary artery has a 90% stenosis. History of Any Multi-Drug Resistant Organisms: None Reported Past Surgical History: Section, Cholecystectomy, Coronary Bypass/CABG, Heart Catheterization Additional Past Surgical History / Comment(s): A catheterization, results mentioned earlier Past Psychological History: Anxiety, PTSD Smoking Status: Never smoker Past Alcohol Use History: None Reported Past Drug Use History: None Reported General Exam Limitations: no limitations General appearance: alert, in no apparent distress Head exam: Present: atraumatic, normocephalic, normal inspection Eye exam: Present: normal appearance, PERRL, EOMI. Absent: scleral icterus, conjunctival injection Pupils: Present: normal accommodation ENT exam: Present: normal exam, mucous membranes moist Neck exam: Present: normal inspection Respiratory exam: Present: normal lung sounds bilaterally. Absent: wheezes, rales, rhonchi, stridor Cardiovascular Exam: Present: regular rate, normal rhythm, normal heart sounds GI/Abdominal exam: Present: soft. Absent: tenderness, guarding, rebound Extremities exam: Present: normal inspection Right Hip exam: Present: tenderness. Absent: full ROM (Pain with flexion and extension.), swelling, abrasion, laceration, ecchymosis Upper Leg exam: Present: normal inspection, full ROM, tenderness (Right hip). Absent: swelling, abrasion, laceration, ecchymosis Knee exam: Present: normal inspection, full ROM Lower Leg exam: Present: normal inspection, full ROM Ankle exam: Present: normal inspection, full ROM. Absent: crepitus Foot/Toe exam: Present: normal inspection, full ROM Neurovascular tendon exam: Present: no vascular compromise. Absent: pulse deficit Gait: not tested/not observed Back exam: Present: normal inspection, full ROM. Absent: tenderness, CVA tenderness (R), CVA tenderness (L), muscle spasm Neurological exam: Present: alert, oriented X3 Psychiatric exam: Present: normal affect, normal mood Skin exam: Present: warm Course Vital Signs 02/13/19 08:40 Temperature 97.9 F Pulse Rate 77 Respiratory 16 Rate Blood Pressure 142/76 O2 Sat by Pulse 96 Oximetry Medical Decision Making - Medical Decision Making Patient is 62-year-old female presenting to the emergency department with right hip pain. Patient was requesting a steroid shot for her arthritis so blood glucose was checked. Blood glucose was 287. She was given 4 mg of rapid acting glucose. She was given Toradol for hip pain. She also complained of episodic vertigo with no hair loss. She was given meclizine by mouth. Afterwards patient felt better and says she will try to improve her diet and take metformin as prescribed for her by her primary care. Patient advised to follow with orthopedics. Patient advised to return to the emergency department if symptoms worsen. Case discussed with physician. - Lab Data Lab Results 02/13/19 Range/Units 09:58 POC Glucose (mg/dL) 289 H (75-99) mg/dL POC Glu Director Center ID Nicolette Segovia Disposition Clinical Impression: Hip pain, chronic Disposition: HOME SELF-CARE Condition: Stable Instructions (If sedation given, give patient instructions): Rheumatoid Arthritis (ED), Type 2 Diabetes in Adults: New Diagnosis (DC), Vertigo (DC) Is patient prescribed a controlled substance at d/c from ED?: No Referrals: Wanda Barrett MD [Primary Care Provider] - 1-2 days Harjeet Egan MD [STAFF PHYSICIAN] - 1-2 days Decision Time: 11:00
[2019-02-13] MEDS ORDERED: KETOROLAC 30 MG/ML 1 ML VIAL IVP STA (10:12)
[2019-02-13] MEDS ORDERED: MECLIZINE 12.5 MG TAB PO STA (10:13)
[2019-02-13] MEDS ORDERED: INSULN ASP PRT/INSULIN ASPART 100 UNIT/ML 10 ML VIAL SQ ONE (10:14)
[2019-02-13 10:25] LABS: Glucose,Whole Blood 289 mg/dL (75-99)
[2019-02-13 11:14] VITALS: BP 143/72; PULSE 80; RESP 18
== END 2019-02-13 11:13 | disposition home or self-care (01) ==
LOC: EC 08:38
DX: G89.29 Other chronic pain (principal); M25.551 Pain in right hip; R42 Dizziness and giddiness; M16.0 Bilateral primary osteoarthritis of hip; I25.119 Atherosclerotic heart disease of native coronary artery with unspecified angina pectoris; E11.9 Type 2 diabetes mellitus without complications; I10 Essential (primary) hypertension; I25.2 Old myocardial infarction; E66.9 Obesity, unspecified; Z68.41 Body mass index [BMI] 40.0-44.9, adult; Z79.82 Long term (current) use of aspirin; Z79.899 Other long term (current) drug therapy; Z88.6 Allergy status to analgesic agent; Z95.1 Presence of aortocoronary bypass graft
CPT/HCPCS: 36415; 96374; 99283

== ENCOUNTER 2019-09-19 15:59 | Emergency (ER) | payer MEDICARE, OTHER ==
[2019-09-19 16:04] VITALS: BP 133/79; PULSE 83; RESP 20; TEMP 98.5
--- NOTE | 2019-09-19 16:22 | ED ---
Fall HPI - General Chief Complaint: Fall Stated Complaint: fall Time Seen by Provider: 09/19/19 16:04 Source: patient Mode of arrival: ambulatory - History of Present Illness Initial Comments: Patient is a 64-year-old female presenting to the emergency department with a chief complaint of a fall. Patient states she felt about 3 days ago on the left side. Patient reports her right hip "gave out" causing her to collapse and fall on the left side of her body. Patient reports tenderness in the left side of her torso. Denies any trouble moving her left upper extremity. Denies any shortness of breath chest pain nausea vomiting. She takes [place] at home for back pain is states the pain on the left side is not alleviated. She reports pain in the left and right rotation. She also has a small area of bruising in the left flank region. - Related Data Home Medications Medication Instructions Recorded Confirmed Aspirin EC [Ecotrin Low Dose] 81 mg PO DAILY 01/08/18 02/13/19 Hydrochlorothiazide 50 mg PO DAILY 02/13/19 02/13/19 Previous Rx's Medication Instructions Recorded HYDROcodone/APAP 10-325MG [[place] 1 tab PO Q6H PRN #60 tab 09/13/16 10-325] ALPRAZolam [Xanax] 1 mg PO Q8HR PRN 3 Days #9 tab 02/24/18 Allergies Allergy/AdvReac Type Severity Reaction Status Date / Time acetaminophen [From Tylenol] AdvReac Itching Verified 09/19/19 16:03 Review of Systems ROS Statement: Those systems with pertinent positive or pertinent negative responses have been documented in the HPI. ROS Other: All systems not noted in ROS Statement are negative. Past Medical History Past Medical History: Coronary Artery Disease (CAD), Chest Pain / Angina, Diabetes Mellitus, Hyperlipidemia, Hypertension, Myocardial Infarction ([place]), Osteoarthritis (OA) Additional Past Medical History / Comment(s): Obesity, miltivessel CAD and the patient has triple-vessel disease with a totally occluded mid left anterior descending. The proximal circumflex in the 70-80% stenosis. First obtuse marginal branch has a 70% stenosis. Second obtuse marginal branch has an 80% stenosis. Right coronary artery has a 90% stenosis. History of Any Multi-Drug Resistant Organisms: None Reported Past Surgical History: Section, Cholecystectomy, Coronary Bypass/CABG, Heart Catheterization Additional Past Surgical History / Comment(s): A catheterization, results mentioned earlier Past Psychological History: Anxiety, PTSD Smoking Status: Never smoker Past Alcohol Use History: None Reported Past Drug Use History: None Reported General Exam Limitations: no limitations General appearance: alert, in no apparent distress, obese Head exam: Present: atraumatic, normal inspection Eye exam: Present: normal appearance, PERRL, EOMI Pupils: Present: normal accommodation ENT exam: Present: normal exam, mucous membranes moist Neck exam: Present: normal inspection, full ROM Respiratory exam: Present: normal lung sounds bilaterally, chest wall tenderness (Left-sided tenderness to palpation.). Absent: wheezes, rales Cardiovascular Exam: Present: regular rate, normal rhythm, normal heart sounds GI/Abdominal exam: Present: soft, tenderness (Left flank soreness. Some bruising measuring approximately 4 cm diameter.). Absent: distended Extremities exam: Present: normal inspection, full ROM Back exam: Present: normal inspection, full ROM Neurological exam: Present: alert, oriented X3 Psychiatric exam: Present: normal affect, normal mood Skin exam: Present: warm, dry, intact, normal color Course Vital Signs 09/19/19 16:00 Temperature 98.5 F Pulse Rate 83 Respiratory 20 Rate Blood Pressure 133/79 O2 Sat by Pulse 99 Oximetry Medical Decision Making - Medical Decision Making Patient is 64-year-old female presenting to emergency Department with a chief complaint of fall. Patient fell about 3 days ago and is still concern because her pain did not completely resolve. On exam patient has some bruising measuring approximately 3 cm in diameter in the left flank region. Denies any shortness of breath or chest pain at this time. Chest x-ray with localization to the left ribs is negative for acute fractures or dislocations the ribs. Patient requesting Toradol for pain relief. After medication given, patient feels ready to go home. Strict return parameters were thoroughly discussed the patient was understanding and agreeable. Case discussed with physician. Disposition Clinical Impression: Fall Disposition: HOME SELF-CARE Instructions (If sedation given, give patient instructions): Fall Prevention (ED) Additional Instructions: Please follow up with primary care. Alternate between Tylenol and ibuprofen for pain control. Please return to emergency department if symptoms worsen. Is patient prescribed a controlled substance at d/c from ED?: No Referrals: Wanda Barrett MD [Primary Care Provider] - 1-2 days Time of Disposition: 17:29
--- NOTE | 2019-09-19 17:21 | XR ---
EXAMINATION TYPE: XR ribs LT w pa chest xray DATE OF EXAM: 09/19/2019 COMPARISON: 11/02/2016 HISTORY: Pain TECHNIQUE: 5 views FINDINGS: Heart is normal. Lungs are clear of consolidation. There is no pleural effusion or pneumoth orax. There are sternal wires. The left ribs appear intact. IMPRESSION: No active cardiopulmonary disease. Normal heart. No rib fracture seen. No change compared to old exam.
[2019-09-19] MEDS: KETOROLAC 30 MG/ML 1 ML VIAL IM STA (17:42)
== END 2019-09-19 17:48 | disposition home or self-care (01) ==
LOC: EC 15:59
DX: S30.1XXA Contusion of abdominal wall, initial encounter (principal); M54.9 Dorsalgia, unspecified; I25.119 Atherosclerotic heart disease of native coronary artery with unspecified angina pectoris; I10 Essential (primary) hypertension; I25.2 Old myocardial infarction; E66.9 Obesity, unspecified; M19.90 Unspecified osteoarthritis, unspecified site; Z79.82 Long term (current) use of aspirin; Z79.891 Long term (current) use of opiate analgesic; Z79.899 Other long term (current) drug therapy; Z88.6 Allergy status to analgesic agent; Z95.1 Presence of aortocoronary bypass graft; Z95.5 Presence of coronary angioplasty implant and graft; Z68.39 Body mass index [BMI] 39.0-39.9, adult; W18.39XA Other fall on same level, initial encounter; Y92.009 Unspecified place in unspecified non-institutional (private) residence as the place of occurrence of the external cause
CPT/HCPCS: 71101; 96372; 99283; J1885

== ENCOUNTER → 2022-05-13 | Outpatient (CLI) | payer MEDICARE, OTHER ==
[2022-05-13 11:42] LABS: Partial Thromboplastin Time 24.1 sec (22.0-30.0); Prothrombin Time 10.5 sec (9.0-12.0)
[2022-05-13 18:30] LABS: HCT 39.9 % (37.2-46.3); MCH 28.5 pg (27.0-32.0); MCHC 32.6 g/dL (32.0-37.0); MCV 87.5 fL (80.0-97.0); Mean Platelet Volume 10.7 fL (9.5-12.2); NRBC Per 100 WBC 0 /100 WBCS (0.0-0.0); Platelet Count 227 X 10*3/uL (140-440); RBC 4.56 X 10*6/uL (4.10-5.20); RDW 12.2 % (11.5-14.5)
[2022-05-13 18:36] LABS: African American GFR (CKD) 62.7 (60.0-200.0); Albumin 4.7 g/dL (3.8-4.9); Albumin/Globulin Ratio 1.45 (1.60-3.17); Anion Gap 11.9 mmol/L (10.00-18.00); BUN/Creat Ratio 17.38 Ratio (12.00-20.00); Blood Urea Nitrogen 18.6 mg/dL (9.0-27.0); Calcium 9.8 mg/dL (8.7-10.3); Carbon Dioxide 26.1 mmol/L (20.0-27.5); Globulin 3.2 g/dL (1.6-3.3); Non-African American GFR(CKD) 54.1 (60.0-200.0); Potassium 3.5 mmol/L (3.5-5.5); Total Bilirubin 0.6 mg/dL (0.30-1.20); Total Protein 7.9 g/dL (6.2-8.2)
[2022-05-14 01:20] LABS: Appearance,Urine Clear (Clear); Bilirubin,Urine Negative (Negative); Blood,Urine Negative (Negative); Color,Urine Yellow (Yellow); Ketones,Urine Negative (Negative); Nitrite,Urine Negative (Negative); Urobilinogen,Urine 0.2 (0.2,1.0)
== END | disposition home or self-care (01) ==
LOC: LABPAT 08:51
PROVIDERS: ATTEND Orthopaedic Surgery
DX: Z01.812 Encounter for preprocedural laboratory examination (principal); M16.11 Unilateral primary osteoarthritis, right hip
CPT/HCPCS: 80053; 81003; 83036; 85027; 85610; 85730; 87070; 93005

== ENCOUNTER → 2022-06-10 | Outpatient (CLI) | payer MEDICARE, OTHER ==
[2022-06-10 11:13] LABS: HCT 39.5 % (34.0-46.0); MCH 29.1 pg (25.0-35.0); MCHC 32.9 g/dL (31.0-37.0); MCV 88.3 fL (80.0-100.0); Platelet Count 214 k/uL (150-450); RBC 4.48 m/uL (3.80-5.40); RDW 12.5 % (11.5-15.5); WBC 5.3 k/uL (3.8-10.6)
[2022-06-10 11:18] LABS: Partial Thromboplastin Time 24.1 sec (22.0-30.0); Prothrombin Time 10.6 sec (9.0-12.0)
[2022-06-10 15:15] LABS: Albumin 4.6 g/dL (3.8-4.9); Albumin/Globulin Ratio 1.44 (1.60-3.17); Anion Gap 10.6 mmol/L (10.00-18.00); Calcium 9.8 mg/dL (8.7-10.3); Carbon Dioxide 26.4 mmol/L (20.0-27.5); Globulin 3.2 g/dL (1.6-3.3); Non-African American GFR(CKD) 58.7 (60.0-200.0); Potassium 3.9 mmol/L (3.5-5.5); Total Bilirubin 0.3 mg/dL (0.30-1.20); Total Protein 7.8 g/dL (6.2-8.2)
[2022-06-10 21:26] LABS: Appearance,Urine Clear (Clear); Bilirubin,Urine Negative (Negative); Blood,Urine Negative (Negative); Color,Urine Yellow (Yellow); Ketones,Urine Negative (Negative); Nitrite,Urine Negative (Negative); PH, Urine 5.5 (5.0-8.0); Specific Gravity,Urine 1.015 (1.001-1.030); Urobilinogen,Urine 0.2 (0.2,1.0)
== END | disposition home or self-care (01) ==
LOC: LABPAT 09:38
PROVIDERS: ATTEND Orthopaedic Surgery
DX: Z01.812 Encounter for preprocedural laboratory examination (principal); M16.11 Unilateral primary osteoarthritis, right hip
CPT/HCPCS: 80053; 81003; 85027; 85610; 85730; 87070

== ENCOUNTER → 2022-07-11 | Outpatient (CLI) | payer MEDICARE, OTHER ==
[2022-07-11 08:16] LABS: Partial Thromboplastin Time 23.1 sec (22.0-30.0); Prothrombin Time 10.7 sec (9.0-12.0)
[2022-07-11 10:10] LABS: HCT 36.9 % (37.2-46.3); HGB 12.1 g/dL (12.0-15.0); MCH 29.1 pg (27.0-32.0); MCHC 32.8 g/dL (32.0-37.0); MCV 88.7 fL (80.0-97.0); NRBC Per 100 WBC 0 /100 WBCS (0.0-0.0); Platelet Count 221 X 10*3/uL (140-440); RBC 4.16 X 10*6/uL (4.10-5.20); RDW 12.1 % (11.5-14.5); WBC 5.16 X 10*3/uL (4.50-10.00)
[2022-07-11 10:59] LABS: Albumin 4.5 g/dL (3.8-4.9); Albumin/Globulin Ratio 1.5 (1.60-3.17); Anion Gap 10.2 mmol/L (10.00-18.00); Calcium 9.2 mg/dL (8.7-10.3); Carbon Dioxide 21.8 mmol/L (20.0-27.5); Non-African American GFR(CKD) 58.7 (60.0-200.0); Potassium 3.5 mmol/L (3.5-5.5); Total Bilirubin 0.5 mg/dL (0.30-1.20); Total Protein 7.5 g/dL (6.2-8.2)
[2022-07-11 11:06] LABS: Appearance,Urine Clear (Clear); Bilirubin,Urine Negative (Negative); Blood,Urine Negative (Negative); Color,Urine Yellow (Yellow); Ketones,Urine Negative (Negative); Nitrite,Urine Negative (Negative); PH, Urine 5.5 (5.0-8.0); Specific Gravity,Urine 1.022 (1.001-1.030); Urobilinogen,Urine 0.2 (0.2,1.0)
== END | disposition home or self-care (01) ==
LOC: LABPAT 07:02
PROVIDERS: ATTEND Orthopaedic Surgery
DX: Z01.818 Encounter for other preprocedural examination (principal)
CPT/HCPCS: 80053; 81003; 85027; 85610; 85730

== ENCOUNTER → 2023-08-08 | Outpatient (CLI) | payer MEDICARE, OTHER ==
[2023-08-08 19:11] LABS: ALT 22 U/L (8-44); AST 27 U/L (13-35); Albumin 4.5 d/dL (3.8-4.9); Albumin/Globulin Ratio 1.55 Ratio (1.60-3.17); Alkaline Phosphatase 68 U/L (41-126); Blood Urea Nitrogen 19.5 mg/dL (9.0-27.0); Calcium 10.1 mg/dL (8.7-10.3); Carbon Dioxide 29.4 mmol/L (21.6-31.8); Chloride 98 mmol/L (96-109); Chol/HDL Ratio 4.78 Ratio; Globulin 2.9 d/dL (1.6-3.3); Glucose 119 mg/dL (70-110); LDL Cholesterol,Calculated 157.1 mg/dL (0.0-131.0); Potassium 3.7 mmol/L (3.5-5.5); Sodium 139 mmol/L (135-145); Total Bilirubin 0.4 mg/dL (0.3-1.2); Total Protein 7.4 d/dL (6.2-8.2)
[2023-08-08 20:36] LABS: Urine Alcohol Negative (Negative); Urine Barbiturate Negative (Negative); Urine Cocaine Negative (Negative); Urine Methadone Negative (Negative); Urine Opiates Positive (Negative); Urine Phencyclidine Negative (Negative)
[2023-08-08 23:50] LABS: HCT 38.1 % (37.2-46.3); HGB 12.4 d/dL (12.0-15.0); MCH 28.8 pg (27.0-32.0); MCHC 32.5 d/dL (32.0-37.0); MCV 88.4 FL (80.0-97.0); Mean Platelet Volume 10.6 FL (9.5-12.2); NRBC Per 100 WBC 0 X 10*3/uL (0.00-0.01); Platelet Count 246 X 10*3/uL (140-440); RBC 4.31 X 10*6/uL (4.10-5.20)
[2023-08-09 07:55] LABS: Erythrocyte Sedimentation Rate 15 mm/Hr (0-30)
== END | disposition home or self-care (01) ==
LOC: LABWHC1 13:01
PROVIDERS: ATTEND Internal Medicine
DX: I25.10 Atherosclerotic heart disease of native coronary artery without angina pectoris (principal); F43.10 Post-traumatic stress disorder, unspecified; E11.9 Type 2 diabetes mellitus without complications
CPT/HCPCS: 36415; 80053; 80061; 80306; 83036; 85027; 85652

== ENCOUNTER → 2025-02-11 | Outpatient (CLI) | payer MEDICARE, OTHER ==
--- NOTE | 2025-02-12 07:56 | US ---
EXAMINATION TYPE: US kidneys/renal and bladder DATE OF EXAM: 02/11/2025 COMPARISON: NONE CLINICAL INDICATION: Female, 69 years old with history of R32 URINARY INCONTINENCE; Incontinence TECHNIQUE: Grayscale imaging of the bilateral kidneys and urinary bladder: FINDINGS: EXAM MEASUREMENTS: Right Kidney: 10.9 x 5.9 x 4.7 cm Left Kidney: 10.2 x 5.1 x 5.5 cm Post Void Residual Volume: 0 mL. pt completely emptied bladder Right Kidney: Cortex appears slightly thin Left Kidney: No hydronephrosis or masses seen Bladder: Anechoic Bilateral Jets seen: Yes Normal Post Void Residual: Yes IMPRESSION: Unremarkable study. Bladder completely emptied on voiding. [facility], , 02/12/2025 7:54 AM
== END | disposition home or self-care (01) ==
LOC: RADUSWWP 15:38
PROVIDERS: ATTEND Family Medicine
DX: R32 Unspecified urinary incontinence (principal)
CPT/HCPCS: 76770